=== PATIENT | female | born 1960 | race Caucasian/White ===

== ENCOUNTER 2023-06-16 11:05 | Inpatient (IN) | payer OTHER ==
[~2023-06-16] VITALS: Ht 175.3 cm; Wt 88.5 kg
[~2023-06-16 11:05] MED LIST: ASA81 MG PO; CARVEDILOL25 MG PO; ENALAPRIL MALEA10 MG PO; FOLIC ACID5 MG/1 ML PO
[2023-06-17] MEDS ORDERED: COZAAR100 MG PO (10:35)
[2023-06-17] MEDS ORDERED: AMBIEN10 MG PO (10:35)
[2023-06-17] MEDS ORDERED: GLUMETZA500 MG PO (12:57)
[2023-06-23] MEDS ORDERED: XARELTO10 MG PO (06:46)
[2023-06-23] MEDS ORDERED: OXYC1TAB9 PO (06:46)
[2023-06-23] MEDS ORDERED: BACTRIM DS TAB1 EACH PO (06:46)
[2023-06-23] MEDS ORDERED: INTEGRA PLUS C1 EACH PO (06:46)
== END 2023-06-23 16:27 | DRG 470 ==
LOC: O/R 06-21 07:14 → SURG 06-21 08:30
PROVIDERS: ADMIT Orthopaedic Surgery Sports Medicine; ATTEND Orthopaedic Surgery Sports Medicine
PROC: 0SRC0J9 Replacement of Right Knee Joint with Synthetic Substitute, Cemented, Open Approach (ICD-10-PCS; principal; 2023-06-21 10:30)
DX: M17.11 Unilateral primary osteoarthritis, right knee (principal); E11.9 Type 2 diabetes mellitus without complications; Z79.4 Long term (current) use of insulin; I25.10 Atherosclerotic heart disease of native coronary artery without angina pectoris; I11.9 Hypertensive heart disease without heart failure; Z96.651 Presence of right artificial knee joint; Z20.822 Contact with and (suspected) exposure to COVID-19

== ENCOUNTER 2023-07-08 15:08 | Inpatient (IN) | payer OTHER ==
[~2023-07-08] VITALS: Ht 175.3 cm; Wt 79.4 kg
[~2023-07-08 15:08] MED LIST changes: +AMBIEN10 MG PO; +BACTRIM DS TAB1 EACH PO; +COZAAR100 MG PO; +GLUMETZA500 MG PO; +INTEGRA PLUS C1 EACH PO; +OXYC1TAB9 PO; +XARELTO10 MG PO
--- NOTE | 2023-07-08 15:32 | NUR ---
PACIENTE ALERTA Y ORIENTADA X 3. REFIERE FUE OPERADA HACE 2 SEMANAS PARA REMPLAZO DE RODILLA DERECHA POR DR Gretel CAMPBELL Y REFIEREN ESTABAN EN OFICINA MEDICA Y TATYANA LE INDICO PASAR POR ER POR POSIBLE CELULITIS DEBIDO A QUE TIENE EL AREA PARI, CALIENTE AL TACTO Y LA HERIDA ESTA ABIERTA. PACIENTE CON REFERIDO MEDICO DE DR CAMPBELL.
--- NOTE | 2023-07-08 16:59 | NUR ---
SE ORIENTA A PTE SOBRE TX MEDICO ORDENADO POR . SE REALIZA GULSHAN D MUESTRAS SUNIL ORDEN MEDICA Y BAJO MEDIDAS ASEPTICAS. VENOPUNCION #18 LT PATENTE BAJANDO IV FLUIDS. SE ADMNITRAN MEDICAMENTOS S EUGN ORDEN MEDICA Y BAJO MEDIDAS ASEPTICAS. SE ENTREGA ENVASE PARA MUESTRA DE U/A, PENDIENTE A ENTREGAR.
[2023-07-16] MEDS ORDERED: XARELTO10 MG PO (08:46)
[2023-07-16] MEDS ORDERED: INTEGRA PLUS C1 EACH PO (08:46)
[2023-07-16] MEDS ORDERED: TRAMADOL HCL50 MG PO (08:46)
== END 2023-07-16 11:55 | disposition home or self-care (01) | DRG 464 ==
LOC: ER 15:08 → SURH 19:06
PROVIDERS: General Practice; Internal Medicine Infectious Disease; ADMIT Orthopaedic Surgery Sports Medicine; ATTEND Orthopaedic Surgery Sports Medicine
PROC: 30233N1 Transfusion of Nonautologous Red Blood Cells into Peripheral Vein, Percutaneous Approach (ICD-10-PCS; 2023-07-09)
PROC: 0SPC0JZ Removal of Synthetic Substitute from Right Knee Joint, Open Approach (ICD-10-PCS; 2023-07-10)
PROC: 0SRC0JZ Replacement of Right Knee Joint with Synthetic Substitute, Open Approach (ICD-10-PCS; 2023-07-10)
PROC: 0JBN0ZZ Excision of Right Lower Leg Subcutaneous Tissue and Fascia, Open Approach (ICD-10-PCS; principal; 2023-07-10 09:00)
PROC: 02HV33Z Insertion of Infusion Device into Superior Vena Cava, Percutaneous Approach (ICD-10-PCS; 2023-07-12)
DX: T84.53XA Infection and inflammatory reaction due to internal right knee prosthesis, initial encounter (principal); L03.115 Cellulitis of right lower limb; N17.9 Acute kidney failure, unspecified; E78.5 Hyperlipidemia, unspecified; D64.9 Anemia, unspecified; B95.61 Methicillin susceptible Staphylococcus aureus infection as the cause of diseases classified elsewhere; Z79.4 Long term (current) use of insulin; R41.82 Altered mental status, unspecified; I12.9 Hypertensive chronic kidney disease with stage 1 through stage 4 chronic kidney disease, or unspecified chronic kidney disease; E11.22 Type 2 diabetes mellitus with diabetic chronic kidney disease; N18.9 Chronic kidney disease, unspecified; Z96.651 Presence of right artificial knee joint; I48.0 Paroxysmal atrial fibrillation

== ENCOUNTER 2023-10-14 15:45 | Inpatient (IN) | payer OTHER ==
[~2023-10-14] VITALS: Ht 175.3 cm; Wt 79.4 kg
[~2023-10-14 15:45] MED LIST changes: +TRAMADOL HCL50 MG PO
[2023-10-14 17:09] LABS: HEMATOCRIT 27.6 % (36.0-45.00); MEAN CELL VOLUME 85.3 fL (80.00-100.00); MEAN CORPUSCULAR HGB CONC 31.4 g/dl (32.0-36.0); PLATELET COUNT 324 K/uL (150-450); RED BLOOD COUNT 3.23 M/uL (4.00-6.00); RED CELL DISTRIBUTION WIDTH 16.6 % (11.5-14.5)
[2023-10-14 17:10] LABS: HEMOGLOBIN 8.7 g/dL (12.0-15.00); MEAN CORPUSCULAR HEMOGLOBIN 26.9 pg (27.00-32.0)
[2023-10-14 17:27] LABS: CALCIUM 9.5 mg/dL (8.5-10.1); CREATININE SERUM 1.22 mg/dL (0.55-1.02); GFR 44.66; POTASSIUM 4.03 mEq/L (3.5-5.1)
[2023-10-14 17:28] LABS: C-REACTIVE PROTEIN 15.8 MG/DL (0.00-0.29)
[2023-10-15 07:29] LABS: MEAN CELL VOLUME 83.3 fL (80.00-100.00); MEAN CORPUSCULAR HGB CONC 32.8 g/dl (32.0-36.0); PLATELET COUNT 284 K/uL (150-450); RED BLOOD COUNT 2.68 M/uL (4.00-6.00); RED CELL DISTRIBUTION WIDTH 16.7 % (11.5-14.5)
[2023-10-15 07:36] LABS: HEMATOCRIT 22.3 % (36.0-45.00); MEAN CORPUSCULAR HEMOGLOBIN 27.2 pg (27.00-32.0)
[2023-10-15 07:37] LABS: HEMOGLOBIN 7.3 g/dL (12.0-15.00)
[2023-10-15 07:47] LABS: INR 1.04; PARTIAL THROMBOPLASTIN TIME 21.9 SECONDS (22.0-34.0); PROTHROMBIN TIME 10.9 SECONDS (9.0-11.5)
[2023-10-15 07:58] LABS: CALCIUM 8.6 mg/dL (8.5-10.1); CREATININE SERUM 1.18 mg/dL (0.55-1.02); GFR 46.41; POTASSIUM 4.14 mEq/L (3.5-5.1)
[2023-10-15 09:56] LABS: PH,URINE 5.5 (5.0-8.0); URINE APPEARANCE Clear; URINE BILIRRUBIN Negative (NEGATIVE); URINE BLOOD Negative; URINE COLOR Yellow; URINE GLUCOSE Negative (NEGATIVE); URINE LEUKOCYTE Negative; URINE NITRATE Negative; URINE PROTEIN Negative (NEGATIVE); URINE UROBILINOGEN 0.2 E.U./dl
[2023-10-15 09:59] LABS: URINE EPITHELIAL CELLS 1.5 uL (0.0-38.8)
[2023-10-15 10:38] LABS: URINE BACTERIA 3.7 uL (0.0-1933); URINE RBC 0.5 uL (0.0-20.8); URINE WBC 0.9 uL (0.0-23.2)
[2023-10-16 06:39] LABS: HEMATOCRIT 30.7 % (36.0-45.00); HEMOGLOBIN 10.2 g/dL (12.0-15.00); MEAN CELL VOLUME 83.8 fL (80.00-100.00); MEAN CORPUSCULAR HEMOGLOBIN 27.8 pg (27.00-32.0); MEAN CORPUSCULAR HGB CONC 33.2 g/dl (32.0-36.0); PLATELET COUNT 283 K/uL (150-450); RED BLOOD COUNT 3.66 M/uL (4.00-6.00); RED CELL DISTRIBUTION WIDTH 16.1 % (11.5-14.5)
[2023-10-16 17:30] LABS: RED BLOOD COUNT 3.27 M/uL (4.00-6.00)
[2023-10-17 02:32] LABS: HEMATOCRIT 26.3 % (36.0-45.00); HEMOGLOBIN 8.6 g/dL (12.0-15.00); MEAN CELL VOLUME 83.8 fL (80.00-100.00); MEAN CORPUSCULAR HEMOGLOBIN 27.3 pg (27.00-32.0); MEAN CORPUSCULAR HGB CONC 32.6 g/dl (32.0-36.0); PLATELET COUNT 250 K/uL (150-450); RED BLOOD COUNT 3.14 M/uL (4.00-6.00); RED CELL DISTRIBUTION WIDTH 15.8 % (11.5-14.5)
[2023-10-18 08:23] LABS: HEMATOCRIT 24.7 % (36.0-45.00); MEAN CELL VOLUME 83.5 fL (80.00-100.00); MEAN CORPUSCULAR HGB CONC 33.5 g/dl (32.0-36.0); PLATELET COUNT 247 K/uL (150-450); RED BLOOD COUNT 2.95 M/uL (4.00-6.00); RED CELL DISTRIBUTION WIDTH 15.6 % (11.5-14.5)
[2023-10-18 08:29] LABS: MEAN CORPUSCULAR HEMOGLOBIN 28.1 pg (27.00-32.0)
[2023-10-18 08:30] LABS: HEMOGLOBIN 8.3 g/dL (12.0-15.00)
[2023-10-18 08:46] LABS: ALBUMIN 2.1 gm/dL (3.4-5.0); BILIRUBIN TOTAL 0.49 mg/dL (0.3-1.2); CALCIUM 7.9 mg/dL (8.5-10.1); CREATININE SERUM 0.74 mg/dL (0.55-1.02); GFR 79.52; GLOBULINA 3.9 G/DL (2.4-3.5); POTASSIUM 3.53 mEq/L (3.5-5.1)
[2023-10-18 08:49] LABS: C-REACTIVE PROTEIN 23.4 MG/DL (0.00-0.29)
[2023-10-19 01:52] LABS: HEMATOCRIT 29.4 % (36.0-45.00); HEMOGLOBIN 9.8 g/dL (12.0-15.00); MEAN CORPUSCULAR HEMOGLOBIN 27.9 pg (27.00-32.0); MEAN CORPUSCULAR HGB CONC 33.2 g/dl (32.0-36.0); PLATELET COUNT 263 K/uL (150-450); RED CELL DISTRIBUTION WIDTH 15.7 % (11.5-14.5)
[2023-10-19 07:41] LABS: HEMATOCRIT 29.4 % (36.0-45.00); HEMOGLOBIN 9.8 g/dL (12.0-15.00); MEAN CELL VOLUME 84.8 fL (80.00-100.00); MEAN CORPUSCULAR HEMOGLOBIN 28.3 pg (27.00-32.0); MEAN CORPUSCULAR HGB CONC 33.4 g/dl (32.0-36.0); PLATELET COUNT 267 K/uL (150-450); RED BLOOD COUNT 3.46 M/uL (4.00-6.00); RED CELL DISTRIBUTION WIDTH 15.7 % (11.5-14.5)
[2023-10-22 14:04] LABS: CALCIUM 9.2 mg/dL (8.5-10.1); CREATININE SERUM 0.72 mg/dL (0.55-1.02); GFR 82.08; POTASSIUM 4.12 mEq/L (3.5-5.1)
[2023-10-22 14:06] LABS: C-REACTIVE PROTEIN 12.1 MG/DL (0.00-0.29)
[2023-10-25 06:57] LABS: HEMATOCRIT 29.1 % (36.0-45.00); HEMOGLOBIN 9.6 g/dL (12.0-15.00); MEAN CELL VOLUME 85.6 fL (80.00-100.00); MEAN CORPUSCULAR HEMOGLOBIN 28.3 pg (27.00-32.0); PLATELET COUNT 348 K/uL (150-450); RED CELL DISTRIBUTION WIDTH 15.8 % (11.5-14.5)
[2023-10-25 07:29] LABS: CALCIUM 8.7 mg/dL (8.5-10.1); CREATININE SERUM 0.81 mg/dL (0.55-1.02); GFR 71.64; POTASSIUM 3.99 mEq/L (3.5-5.1)
[2023-10-28] MEDS ORDERED: OXYCONTIN10 M1 PO (06:37)
[2023-10-28] MEDS ORDERED: INTEGRA PLUS C1 EACH PO (06:37)
[2023-10-28] MEDS ORDERED: XARELTO10 MG PO (06:37)
== END 2023-10-28 19:16 | disposition home or self-care (01) | DRG 464 ==
LOC: ER 15:45 → SURH 19:16 → MEDI 19:16 → SURH 19:26
PROVIDERS: General Practice; Internal Medicine; ADMIT Orthopaedic Surgery Sports Medicine; ATTEND Orthopaedic Surgery Sports Medicine
PROC: B54BZZZ Ultrasonography of Right Lower Extremity Veins (ICD-10-PCS; 2023-10-14)
PROC: 30233N1 Transfusion of Nonautologous Red Blood Cells into Peripheral Vein, Percutaneous Approach (ICD-10-PCS; 2023-10-15)
PROC: 0SBC0ZZ Excision of Right Knee Joint, Open Approach (ICD-10-PCS; 2023-10-16)
PROC: 0SHC08Z Insertion of Spacer into Right Knee Joint, Open Approach (ICD-10-PCS; 2023-10-16)
PROC: 3E10X8Z Irrigation of Skin and Mucous Membranes using Irrigating Substance (ICD-10-PCS; 2023-10-16)
PROC: 0SPC0JZ Removal of Synthetic Substitute from Right Knee Joint, Open Approach (ICD-10-PCS; principal; 2023-10-16 07:00)
PROC: 02HV33Z Insertion of Infusion Device into Superior Vena Cava, Percutaneous Approach (ICD-10-PCS; 2023-10-19)
PROC: BQ3DZZZ Magnetic Resonance Imaging (MRI) of Right Lower Leg (ICD-10-PCS; 2023-10-26)
DX: T84.53XA Infection and inflammatory reaction due to internal right knee prosthesis, initial encounter (principal); L02.415 Cutaneous abscess of right lower limb; B95.61 Methicillin susceptible Staphylococcus aureus infection as the cause of diseases classified elsewhere; E11.9 Type 2 diabetes mellitus without complications; Z79.4 Long term (current) use of insulin; I10 Essential (primary) hypertension; D72.828 Other elevated white blood cell count; D64.9 Anemia, unspecified
CPT/HCPCS: 73725

== ENCOUNTER 2023-11-12 09:54 | Emergency (ER) | payer OTHER ==
[~2023-11-12] VITALS: Ht 175.3 cm; Wt 79.4 kg
[~2023-11-12 09:54] MED LIST changes: +OXYCONTIN10 M1 PO
[2023-11-12 11:17] LABS: HEMATOCRIT 33.3 % (36.0-45.00); HEMOGLOBIN 10.8 g/dL (12.0-15.00); MEAN CELL VOLUME 85.3 fL (80.00-100.00); MEAN CORPUSCULAR HEMOGLOBIN 27.7 pg (27.00-32.0); MEAN CORPUSCULAR HGB CONC 32.5 g/dl (32.0-36.0); PLATELET COUNT 212 K/uL (150-450); RED CELL DISTRIBUTION WIDTH 15.8 % (11.5-14.5)
[2023-11-12 11:44] LABS: CALCIUM 9.1 mg/dL (8.5-10.1); CREATININE SERUM 1.12 mg/dL (0.55-1.02); GFR 49.29; POTASSIUM 3.62 mEq/L (3.5-5.1)
[2023-11-12 18:49] LABS: PH,URINE 5.5 (5.0-8.0); URINE APPEARANCE Clear; URINE BILIRRUBIN Negative (NEGATIVE); URINE BLOOD Negative; URINE COLOR Yellow; URINE GLUCOSE Negative (NEGATIVE); URINE LEUKOCYTE Moderate; URINE NITRATE Negative; URINE PROTEIN 30 (NEGATIVE); URINE UROBILINOGEN 0.2 E.U./dl
[2023-11-12 18:52] LABS: URINE BACTERIA 108.3 uL (0.0-1933); URINE EPITHELIAL CELLS 20.2 uL (0.0-38.8); URINE WBC 293.6 uL (0.0-23.2)
[2023-11-12] MEDS ORDERED: MACRODANTIN100 M1 PO (20:07)
== END 2023-11-12 22:23 | disposition home or self-care (01) ==
LOC: ER 09:54
PROVIDERS: Emergency Medicine
DX: N39.0 Urinary tract infection, site not specified (principal); T81.40XA Infection following a procedure, unspecified, initial encounter; Y92.89 Other specified places as the place of occurrence of the external cause; Z88.6 Allergy status to analgesic agent

== ENCOUNTER 2024-05-15 11:44 | Inpatient (IN) | payer OTHER ==
[~2024-05-15] VITALS: Ht 175.3 cm; Wt 72.6 kg
[~2024-05-15 11:44] MED LIST changes: +MACRODANTIN100 M1 PO
[2024-05-15 12:32] LABS: URINE APPEARANCE Clear; URINE BILIRRUBIN Negative (NEGATIVE); URINE BLOOD Negative; URINE COLOR Yellow; URINE GLUCOSE Negative (NEGATIVE); URINE LEUKOCYTE Negative; URINE NITRATE Negative; URINE PROTEIN Negative (NEGATIVE); URINE UROBILINOGEN 0.2 E.U./dl
[2024-05-15 12:35] LABS: URINE BACTERIA 23.9 uL (0.0-1933); URINE EPITHELIAL CELLS 5.3 uL (0.0-38.8); URINE WBC 18.8 uL (0.0-23.2)
[2024-05-15 12:43] LABS: HEMATOCRIT 36.7 % (36.0-45.00); HEMOGLOBIN 12.3 g/dL (12.0-15.00); MEAN CORPUSCULAR HEMOGLOBIN 31.5 pg (27.00-32.0); MEAN CORPUSCULAR HGB CONC 33.5 g/dl (32.0-36.0); PLATELET COUNT 197 K/uL (150-450); RED CELL DISTRIBUTION WIDTH 13.9 % (11.5-14.5)
[2024-05-15 12:47] LABS: URINE RBC 0.9 uL (0.0-20.8)
[2024-05-15 13:11] LABS: INR 0.96; PARTIAL THROMBOPLASTIN TIME 25.6 SECONDS (22.0-34.0); PROTHROMBIN TIME 10.1 SECONDS (9.0-11.5)
[2024-05-15 13:16] LABS: ALBUMIN 4.3 gm/dL (3.4-5.0); BILIRUBIN TOTAL 0.44 mg/dL (0.3-1.2); CALCIUM 9.7 mg/dL (8.5-10.1); CREATININE SERUM 1.19 mg/dL (0.55-1.02); GFR 45.81; GLOBULINA 3.7 G/DL (2.4-3.5); POTASSIUM 4.74 mEq/L (3.5-5.1)
[2024-05-16] MEDS ORDERED: CEFAZOLIN SODIUM 1,000 MG VIAL ONE (14:16)
[2024-05-16] MEDS ORDERED: POLYMYXIN B SULFATE 500,000 U VIAL ONE (14:24)
[2024-05-16] MEDS ORDERED: KETOROLAC TROMETHAMINE 60 MG VIAL IM ONE (14:24)
[2024-05-16] MEDS ORDERED: VANCOMYCIN HCL 1,000 MG VIAL ONE ×2 (14:25→20:50)
[2024-05-16] MEDS ORDERED: LIDOCAINE HCL 1%/EPINEPHRINE 20ML VIAL IJ ONE (14:25)
[2024-05-16] MEDS ORDERED: BUPIVACAINE HCL/Mpf 0.5% 10ML VIAL ONE (14:25)
[2024-05-16] MEDS ORDERED: TRANEXAMIC ACID 100MG/1ML (1000MG) AMPUL IV ONE ×2 (14:25→16:00)
[2024-05-16] MEDS ORDERED: MORPHINE SULFATE 4 MG/ML CARTRIDGE IV ONE (16:15)
[2024-05-16] MEDS ORDERED: POVIDONE-IODINE 0.75 OZ PACKET TOP ONE (16:35)
[2024-05-16] MEDS ORDERED: THROMBIN,HU/FIBRINOGEN/CALCIUM 10 ML SYRINGE TOP ONE (20:08)
[2024-05-16] MEDS ORDERED: GENTAMICIN SULFATE 40 MG/ML VIAL IV SCH (21:59)
[2024-05-16] MEDS ORDERED: ONDANSETRON HCL 2 MG/ML VIAL IV PRN (22:00)
[2024-05-16] MEDS ORDERED: SODIUM CHLORIDE 0.45 % 1,000 ML IV SCH (22:00)
[2024-05-16] MEDS ORDERED: MORPHINE SULFATE 4 MG/ML VIAL IV PRN (22:00)
[2024-05-16] MEDS ORDERED: MORPHINE SULFATE 2 MG/ML CARTRIDGE IV ONE (22:00)
[2024-05-17] MEDS ORDERED: CEFAZOLIN SODIUM 1,000 MG VIAL IV SCH
[2024-05-17 02:18] LABS: HEMATOCRIT 29.7 % (36.0-45.00); RED BLOOD COUNT 3.16 M/uL (4.00-6.00)
[2024-05-17] MEDS ORDERED: MORPHINE SULFATE 4 MG/ML CARTRIDGE IV PRN (06:30)
[2024-05-17] MEDS ORDERED: GENTAMICIN SULFATE 40 MG/ML VIAL ONE (08:37)
[2024-05-17] MEDS ORDERED: SULFAMETHOXAZOLE/TRIMETHOPRIM DS 1 TAB PO SCH (09:00)
[2024-05-17] MEDS ORDERED: LOSARTAN POTASSIUM 100 MG TABLET PO SCH (09:00)
[2024-05-17] MEDS ORDERED: RIVAROXABAN 10 MG TAB PO SCH (09:00)
[2024-05-17] MEDS ORDERED: BACITRACIN 28.35 GM OINT.TUBE TOP SCH ×2 (09:00)
[2024-05-17] MEDS ORDERED: CARVEDILOL 25 MG TABLET PO SCH (09:00)
[2024-05-17] MEDS ORDERED: SENNA/DOCUSATE SODIUM 1 TAB TABLET PO SCH (09:00)
[2024-05-17] MEDS ORDERED: IRON FUM,PS/FOLIC/BCOMP,C NO.9 1 CAP CAPSULE PO SCH (09:00)
[2024-05-17] MEDS ORDERED: MetFORMIN HCL 500 MG TABLET PO SCH (09:00)
[2024-05-17 10:54] LABS: HEMATOCRIT 32.8 % (36.0-45.00); HEMOGLOBIN 10.9 g/dL (12.0-15.00); MEAN CELL VOLUME 93.4 fL (80.00-100.00); MEAN CORPUSCULAR HEMOGLOBIN 31.1 pg (27.00-32.0); MEAN CORPUSCULAR HGB CONC 33.3 g/dl (32.0-36.0); PLATELET COUNT 151 K/uL (150-450); RED BLOOD COUNT 3.52 M/uL (4.00-6.00); RED CELL DISTRIBUTION WIDTH 13.8 % (11.5-14.5)
[2024-05-17] MEDS ORDERED: hydrALAZINE HCL 20 MG VIAL IV PRN (14:15)
[2024-05-17] MEDS ORDERED: DEXTROSE 50 % IN WATER 0.5 G/ML VIAL IV PRN (14:30)
[2024-05-17] MEDS ORDERED: INSULIN LISPRO 1,000 UNIT/10 ML UNITS SUBCUTANEO PRN (14:30)
[2024-05-18] MEDS ORDERED: INTEGRA PLUS C1 EACH PO (08:11)
[2024-05-18] MEDS ORDERED: XARELTO10 MG PO (08:11)
[2024-05-18] MEDS ORDERED: Septra Ds Tablet PO (08:11)
[2024-05-18] MEDS ORDERED: ACETAMINOPHEN 500 MG GEL..CAP PO PRN (08:30)
== END 2024-05-18 16:10 | DRG 468 ==
LOC: OB/GYN 05-16 08:40 → O/R 05-16 08:40 → CIR.AMB 05-16 11:41 → EDSTATUS 05-16 11:43 → SURG 05-16 11:43 → OB/GYN 05-16 22:30 → O/R 05-16 22:33 → OB/GYN 05-17 07:27
PROVIDERS: ADMIT Orthopaedic Surgery Sports Medicine; ATTEND Orthopaedic Surgery Sports Medicine
PROC: 0SRC0J9 Replacement of Right Knee Joint with Synthetic Substitute, Cemented, Open Approach (ICD-10-PCS; 2024-05-16)
PROC: 0K8 Muscles, Division (ICD-10-PCS; 2024-05-16)
PROC: 0SPC0JZ Removal of Synthetic Substitute from Right Knee Joint, Open Approach (ICD-10-PCS; principal; 2024-05-16 16:00)
DX: M25.561 Pain in right knee (principal); M24.561 Contracture, right knee; Z96.651 Presence of right artificial knee joint; I11.9 Hypertensive heart disease without heart failure; E11.9 Type 2 diabetes mellitus without complications; Z79.84 Long term (current) use of oral hypoglycemic drugs